=== PATIENT | female | born 1985 | race Caucasian/White ===

== ENCOUNTER 2017-10-08 09:37 | Day surgery (SDC) | payer OTHER, SELFPAY ==
[2017-10-08] VITALS (10 sets, daily range): BP systolic 94–129; BP diastolic 63–84; PULSE 60–90; RESP 14–17; TEMP 36.4–36.9; O2SAT 98–100; BMI 30.7
--- NOTE | 2017-10-08 09:48 | US_ITS ---
STUDY: FIRST TRIMESTER OBSTETRICAL ULTRASOUND REASON FOR EXAM: Female, 32 years old. Right-sided pelvic pain. Positive beta hCG. LMP: August 19, 2017 TECHNIQUE: Transvaginal PRIOR ULTRASOUND: None. FINDINGS: There is an extrauterine (ectopic) gestational sac. The mean sac diameter (MSD) measures 4.3 mm, indicating an estimated gestational age (EGA) of 5 weeks, 4 days. The gestational sac shape is within normal limits. There is a visualized yolk sac. The yolk sac measures 2.5 mm. The placenta is non-visualized. There is visualization of a live embryo. The crown-rump length (CRL) measures 2.8 mm, indicating an estimated gestational age (EGA) of 6 weeks, 0 days. There is demonstrated cardiac activity with a heart rate of 119 bpm. The estimated gestation age (EGA) by LMP is 7 weeks, 1 days. The estimated date of delivery (MARIO) by LMP is May 26, 2018. The estimated gestation age (EGA) by US is 5 weeks, 4 days. The estimated date of delivery (MARIO) by US is June 06, 2018. The uterus measures 9.0 cm x 5.5 x 4.5 cm. The endometrium is thickened. It measures 11.2 mm. Within the endometrium, there is a 4.3 mm small fluid collection suggestive of a pseudogestational sac. There is no demonstrated uterine fibroid. The cervix is closed. The right ovary measures 2.0 cm x 1.7 cm x 0.9 cm.. There is no right ovarian cyst. In the right adnexal region, there is evidence of a live ectopic . The left ovary measures 3.2 cm x 3.0 cm x 2.2 cm. There is no left ovarian cyst. There is no visualized left adnexal mass or complex lesion. There is no fluid in the cul de sac. US/Transvaginal w/Preg US IMPRESSION: Findings in keeping with a right live ectopic . N.B. : The above information has been verbally conveyed by Cayetano Jacques MD to Wiley Radford on 10/08/2017 12:26:43 (ET). Electronically Signed: Cayetano Jacques MD at 12:27 EST Tel [phone], Service support , N.B. : The above information has been verbally conveyed by Cayetano Jacques MD to Wiley Radford on 10/08/2017 12:26:43 (ET).
--- NOTE | 2017-10-08 09:51 | ED.VISSUMM ---
- ER Visit Summary Date of Service: 10/08/17 Chief Complaint: Abdominal pain History of Present Illness: The patient is a 32 F presents to the emergency department with rather sudden onset right lower quadrant pain. The patient is . She thinks she is approximately 5-6 weeks by last menstrual period. She states that today, at about 730 this morning, she had a rather sudden onset sharp stabbing pain in her right lower quadrant deep in the pelvis. She states it is different than pain she has had before. 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 She states the pain felt different and she was much more nauseated. She denies any vomiting. She denies any urinary symptoms. She does have some pain in her right flank. She has had some mild vaginal bleeding. The patient is approximately 8 months . She had no problems with her first . She did call Dr. Antunez, her NEUROPHYSIOLOGICAL TECHNICIAN, who referred her into the emergency department. Physical Examination: Vital signs reviewed General: Well-nourished, well-developed Head: Normocephalic, atraumatic Eyes: Pupils equal and reactive, extraocular muscles intact Neck, supple, no lymphadenopathy Heart: Regular rate and rhythm Respiratory: No distress, clear bilaterally Abdomen: Soft, tender in the right lower quadrant into the pelvis without rebound or guarding, nondistended, no peritoneal signs Back: Nontender Extremities: Nontender, no edema, no cords Skin: Normal color no rash Neuro: Alert and oriented, no focal or lateralizing deficits Test Results: [] Emergency Department Course and Treatment: The patient's symptoms were concerning for an ectopic . She was not hypotensive. Her pain was addressed with some improvement. Screening labs relatively unremarkable. Quant was approximately 3200. The patient went for ultrasound which does confirm a right sided ectopic . There is no evidence of free fluid or rupture. The patient was discussed with both Dr. Antunez and Dr. Juliann Whitehead. She will be taken to surgery for treatment of her right-sided ectopic . Patient will be evaluated by NEUROPHYSIOLOGICAL TECHNICIAN. Treatment Plan: [] Disposition: To surgery Impression:. Right-sided ectopic This note was generated with [employer] software. It may contain incorrect words, spelling, and punctuation that were not noted in review of the chart prior to signing ED Disposition - Plan for ED Patient: Chief Complaint: Abd Pain Referrals: Gustavo Dick [Primary Care Provider] -
[2017-10-08] MEDS: Ondansetron 4 MG/2 ML Vial IV (10:09)
[2017-10-08] MEDS: 0.9% Normal Saline 1,000 ML 1000 ML IV (10:09)
[2017-10-08 10:15] LABS: Absolute Lymphocyte Count 1.86 X10^3/ul (0.83-4.51); Absolute Neutrophil Count 2.8 X10^3/uL (2.0-7.7); Basophil# 0.02 X10^3/uL; Basophil% 0.4 % (0-1); Eosinophil# 0.08 X10^3/uL; Eosinophils% 1.5 % (0-5); Hematocrit 39.9 % (37-47); Lymphocyte # 1.86 X10^3/ul (4.0); Mean Corp Hgb Conc 32.6 g/gl (32-36); Mean Corpuscular Hgb 29.3 pg (27.0-32.0); Mean Corpuscular Volume 90.1 fL (81-99); Mean Platelet Vol. 9.5 fl (6.2-12.0); Monocyte# 0.37 X10^3/uL; Monocyte% 7.2 % (0-10); Neutrophil # 2.83 X10^3/uL (2.7-7.7); Neutrophil % 54.7 % (47-70); Platelet Count 254 K/mm3 (150-450); RBC Distribution Width CV 12.6 % (11.6-14.6); RBC Distribution Width SD 41.2 fl (35.1-43.9); Red Blood Count 4.43 M/mm3 (4.2-5.4); White Blood Count 5.2 K/mm3 (4.4-11.0)
[2017-10-08 10:17] LABS: POSITIVE COUNT NO; POSITIVE DIFFERENTIAL NO; POSITIVE MORPHOLOGY NO
[2017-10-08 10:22] LABS: Anion Gap 9 (5-15); BUN 11 mg/dL (7-18); BUN/Creat Ratio 15.1 RATIO (10-20); Calcium,Total 8.5 mg/dL (8.5-10.1); Chloride 109 mmol/L (98-107); Creatinine, Serum 0.73 mg/dL (0.55-1.02); EST Glomerular Filtration Rate 97 mL/min (>60); Est Glom Filt Rate - Afr Amer 117 mL/min (>60); Glucose 93 mg/dL (74-106); Potassium 3.9 mmol/L (3.5-5.1); Sodium Level 141 mmol/L (136-145)
[2017-10-08 10:41] LABS: hCG Titer Quant., Serum 3285 mIU/mL (<9 non-preg)
[2017-10-08 10:42] LABS: Mucous, Urine 0 SEEN /hpf (<or=2+)
[2017-10-08 10:46] LABS: Color, Urine Yellow (Yellow); Glucose, Dipstick Normal (Normal); Ketone-Dipstick Negative (Negative); Leukocyte Esterase-Dipstick 100 /ul (Negative); Nitrite-Dipstick Negative (Negative); Occult Blood-Urine 10 /ul (Negative); Protein-Dipstick Negative (Negative); Specific Gravity, Urine 1.015 (1.002-1.030); Urine Bilirubin Dipstick Negative (Negative); Urine Clarity Clear (Clear); Urine Urobilinogen 1 mg/dl (Normal); Urine pH 6.5 (5.0 - 8.0)
[2017-10-08 11:03] LABS: White Blood Cells 5-10 SEEN /hpf (0-5)
[2017-10-08 11:04] LABS: Bacteria 2+ /hpf (None Seen); Red Blood Cells-Urine 0-5 SEEN /hpf (0-5); Squamous Epithelial Cells - UA 5-10 SEEN /hpf (5-10)
--- NOTE | 2017-10-08 14:27 | PCM.DC ---
You will use the following diet at home:: Regular Your food should be the consistency of: Regular Discharge Activity: Return to Normal Activity, May Drive, May not drive while taking narcotic pain medications., May Shower Return to work on:: 10/15/17 May shower in (days): 0 May resume sexual activity in: 2 weeks Call your doctor if your incision/area has: Sudden Increased Bleeding, Increased Pain/ Swelling, Increased Redness, Foul Smelling Discharge, Swelling at the incision site Call your doctor if you observe: Fever of 101 or Higher, Inability to urinate, Inability to have a bowel movement, Using more than one pad per hour, Shortness of breath, Chest pain, Calf discomfort, Uncontrolled pain Remove Dressing in (days):: 2 Cleanse incision/area with: Soap & Water Allergies/Adverse Reactions: Allergies meperidine [From Demerol] Allergy (Verified 10/08/17 09:40) Hives peanut Allergy (Verified 10/08/17 09:40) Hives Medications to take at Discharge Polyethylene Glycol 3350 [Miralax] 17 gm PO DAILY 03/12/15 Vits [Prenatabs FA ] 1 tablet PO DAILY 02/09/17 Ibuprofen [Motrin] 800 mg PO TID PRN PRN #30 tab 10/08/17 Oxycodone [Oxyir] 5 mg PO Q4H PRN PRN 7 Days #28 tab 10/08/17 The following prescriptions were given: Oxycodone [Oxyir] 5 mg PO Q4H PRN PRN 7 Days #28 tab PRN Reason: Pain Ibuprofen [Motrin] 800 mg PO TID PRN PRN #30 tab PRN Reason: pain or cramping Primary Care Physician: Gustavo Dick [Primary Care Provider] - Please Follow Up With: Ab Antunez MD When: one week Proposed Discharge Date: 10/08/17
[2017-10-08] MEDS: Bupivacaine Mpf 0.5% 30 ML VIAL (14:45)
--- NOTE | 2017-10-08 14:59 | PCM.IMDPSTOP ---
Problem List (1) Ruptured right tubal ectopic causing hemoperitoneum Status: Acute Immediate Post-Op Note Date of Procedure: 10/08/17 Primary Surgeon/Physician: Ab Antunez product marketing executive: Giancarlo Benitez Pre-Operative Diagnosis: Right ectopic Post-Operative Diagnosis: Same Surgery/Procedure Performed:: Exploratory laparoscopy, right salpingectomy Description of Surgical Findings:: Right fallopian tube with ectopic . Blood present in pelvis and in abdominal gutters. Normal appearing ovaries bilaterally. Left fallopian tube appears normal. Uterus normal. Estimated Blood Loss: minimal Specimen's removed: right fallopian tube with ectopic Drains: none Type of Anesthesia:: General ASA Class: ASA2 Mod Systematic Disease - Admit VTE Documentation VTE Present on Admission: No VTE Mechan Device Prophylaxis: SCD's VTE Pharm Prophylaxis ordered?: No
--- NOTE | 2017-10-08 15:05 | OP.PN_ITS ---
Problem List (1) Ruptured right tubal ectopic causing hemoperitoneum Status: Acute Immediate Post-Op Note Date of Procedure: 10/08/17 Primary Surgeon/Physician: Ab Antunez customs and border protection officer: Giancarlo Benitez Pre-Operative Diagnosis: Right ectopic Post-Operative Diagnosis: Same Surgery/Procedure Performed:: Exploratory laparoscopy, right salpingectomy Description of Surgical Findings:: Right fallopian tube with ectopic . Blood present in pelvis and in abdominal gutters. Normal appearing ovaries bilaterally. Left fallopian tube appears normal. Uterus normal. Estimated Blood Loss: minimal Specimen's removed: right fallopian tube with ectopic Drains: none Type of Anesthesia:: General ASA Class: ASA2 Mod Systematic Disease - Admit VTE Documentation VTE Present on Admission: No VTE Mechan Device Prophylaxis: SCD's VTE Pharm Prophylaxis ordered?: No
--- NOTE | 2017-10-08 15:43 | OP.PCM_ITS ---
Problem List (1) Ruptured right tubal ectopic causing hemoperitoneum Status: Acute Report of Operation Date of Procedure: 10/08/17 Pre-Operative Diagnosis: Right ectopic Post-Operative Diagnosis: Same Surgery/Procedure Performed:: Exploratory laparoscopy, right salpingectomy Description of Surgical Findings:: Right fallopian tube with ectopic . Blood present in pelvis and in abdominal gutters. Normal appearing ovaries bilaterally. Left fallopian tube appears normal. Uterus normal. extension worker: Giancarlo Benitez Type of Anesthesia:: General Anesthesiologist: Terry Herring Specimen's removed: right fallopian tube with ectopic Drains: none Estimated Blood Loss (mL): minimal Fluids Replaced: 1000cc Description of Procedure: Ultrasound findings and diagnosis of ectopic given to Sussy. Explained emergent nature of problem due to high risk of rupture and blood loss. Explained possible need for right salpingectomy prior to taking to OR and implication for possible somewhat reduced fertility. She agreed to surgery. She was taken tot he OR with IV running. She was given 2 grams of cefotetan intravenously prior to the surgery. General anesthesia was introduced without complication. She was then prepped and draped in the dorsal lithotomy position. SCDs were in place. A red rubber catheter was used to drain the bladder. Attention was then directed to the vagina where an Goldthwaite style uterine manipulator was placed. Attention was then directed to the abdomen where a vertical 10mm incision was made in the lower base of the umbilicus. The underlying subcutaneous tissue was dissected down to the level of fascia with a Sana clamp. The abdomen was then elevated and a Veress needle was placed through this defect into the abdomen. The abdomen was then insulflated with CO2 gas to a pressure of 12 Torr. The Veress was then removed and replaced with a 12 mm trocar and sleeve. The trocar was then removed and replaced with the laparoscope. Findings were as mentioned above. Two lateral 5 mm side ports were then placed about 3 cm below the level of the umbilicus lateral to the inferior epigastric vessels. These were placed with direct visualization with the laparoscope. The left fallopian tube was then grasped at the fimbriated end, elevated and the mesosalpinx dissected from the fimbriated end to the the cornua of the uterus. The tube was then amputated at the cornua. The right tube and ectopic was placed in an endocatch bag and removed through the umbilical port site. The pelvis and abdomen was then irrigated to remove the hemoperitoneum. The pedicle sites were hemostatic. The lateral port sites were then removed under direct visualization with the laparoscope. The gas was then evacuated from the abdomen and the umbilical port site removed. The fascia at the umbilicus was closed with a figure of eight stitch of 0-Vicryl. The skin incisions were closed with 4-0 Monocryl. The uterine manipulator was then removed. Sponge, lap, and needle counts were correct x 2. The patient was reversed from anesthesia and taken to the recovery room in stable condition. Grafts/Implants Used: none - Complications none - Admit VTE Documentation VTE Present on Admission: No VTE Mechan Device Prophylaxis: SCD's VTE Pharm Prophylaxis ordered?: No
--- NOTE | 2017-10-08 18:50 | FAL_PTH ---
PATIENT: NERY GARCIA LOC: [facility] [place] U#:[id number] AGE/SX: 32/F ROOM: RE10/08/[address]: Dr. Ab Antunez MD : [id number] BED: DIS: 10/08/2017 SPEC #: [id number] RECD: 10/09/17 10:11 STATUS: SALAS IVANA #: [id number] ETTA: 10/08/17 18:[address]: Ab Antunez DEPT: SURGICAL PATHOLOGY RECD BY: Trev Graham ENTERED: 10/09/17 12:07 SP TYPE: ECTOPIC OTHR DR: Dr. Gustavo Dick DO Tissues: ECTOPIC PREG Procedures: Surgery Specimen Level IV HEADER OPERATION: Exploratory laparoscopy, right salpingectomy PRE-OP DIAGNOSIS: Right ectopic TISSUE SUBMITTED: Right fallopian tube with ectopic MICROSCOPIC DIAGNOSIS Right fallopian tube: Intraluminal chorionic villi, stroma tissue and trophoblastic cells consistent with intratubal . AM:lora 10/12/17 MICROSCOPIC DESCRIPTION Slides are reviewed. GROSS DESCRIPTION Received in fixative is one container labeled with the patient's name and designated right fallopian tube. The specimen consists of a dark ceja fallopian tube measuring 6 cm in length and varying in diameter from 0.6 to 1.7 cm. A normal fimbriated end is identified. Serial sections reveal hemorrhagic cut surfaces. Event Promoter sections are submitted in three cassettes. / AM:lora 10/09/17 TC:5 CPT: 83476
== END 2017-10-08 17:35 | disposition home or self-care (01) ==
LOC: ED 11:56 → SDC 12:02 → AC 12:57
PROVIDERS: Emergency Provider Emergency Medicine; Family Provider Family Medicine; PCP Family Medicine; Visit Provider Obstetrics & Gynecology
PROC: 10T24ZZ Resection of Products of Conception, Ectopic, Percutaneous Endoscopic Approach (ICD-10-PCS; CPT 59150; principal; 2017-10-08 13:15)
DX: O00.101 Right tubal pregnancy without intrauterine pregnancy (principal); K66.1 Hemoperitoneum
CPT/HCPCS: 59151; 76817; 80048; 81001; 84702; 85025; 86900; 88305; 99282; J7030; J7120; J2405

== ENCOUNTER → 2018-07-19 10:51 | Outpatient (CLI) | payer OTHER, SELFPAY ==
[2017-10-08 12:13] VITALS: BMI 30.7
[2018-07-23 08:36] LABS: HPV Reflexed? NOT INDICATED
== END ==
PROVIDERS: Visit Provider Obstetrics & Gynecology
DX: Z12.4 Encounter for screening for malignant neoplasm of cervix (principal)
CPT/HCPCS: 88175; G0145

== ENCOUNTER → 2018-08-25 08:01 | Outpatient (CLI) | payer OTHER, SELFPAY ==
[2018-08-13 14:40] VITALS: BMI 30.7
--- NOTE | 2018-08-25 08:03 | CT_ITS ---
STUDY: CT ABDOMEN AND PELVIS WITH CONTRAST REASON FOR EXAM: Female, 33 years old. Located in the spleen, kidneys are normal in the femoral artery on the manifestation Ultrasound was attempted but due to 3. For 08 In the medial knee and ureters okay Please go evaluated than this is performed to C6. Just relate involving the distal is not my finger pain 5)+'T processing 73 study: The examination was examination obtained onWilly RADIATION DOSAGE (If Supplied By Facility): CTDIvol = ( 16.42 ) mGy, DLP = ( 1245.03 ) mGycm TECHNIQUE: Transaxial images were obtained from the dome of the diaphragm to the symphysis pubis without oral contrast. 100 ml of Isovue 300 contrast was administered. Sagittal and coronal images were reconstructed. Individualized dose optimization techniques were used for this CT. COMPARISON: None. FINDINGS: The visualized lung bases are unremarkable. The visualized portions of the heart are within normal limits. Normal liver. Normal gallbladder and extrahepatic biliary system. Normal spleen. Normal pancreas. Normal bilateral adrenal glands. Normal right kidney. Normal left kidney. Normal visualized stomach. Normal small intestine. Normal colon. The appendix is not visualized. Normal abdominal aorta. Normal inferior vena cava. Normal retroperitoneum. Normal urinary bladder. There is absence of the uterus consistent with a prior hysterectomy. Normal abdominal wall. Normal osseous structures. CT/Abdomen/Pelvis WITH Contrast IMPRESSION: Normal enhanced CT of the abdomen and pelvis. Electronically Signed: Gladys Zhao, at 10:00 EST Tel , Service support ,
== END ==
PROVIDERS: Family Provider Family Medicine; PCP Family Medicine; Referring Provider Surgery; Visit Provider Surgery
DX: R10.9 Unspecified abdominal pain (principal)
CPT/HCPCS: 74177; Q9967

== ENCOUNTER 2019-09-05 03:20 | Emergency (ER) | payer OTHER, SELFPAY ==
[2018-09-01 14:28] VITALS: BMI 30.7
[2019-09-05 03:21] VITALS: BP 124/72; PULSE 67; RESP 16; TEMP 36.5; O2SAT 99; BMI 28.1
--- NOTE | 2019-09-05 03:44 | CT_ITS ---
HISTORY: ABD PAIN X 1 WEEK WITH NAUSEA . THIS AM LLQ PAIN, HX Partial COLECTOMY, ECTOPIC , RIGHT FALLOPIAN TUBE REMOVED, APPY EXAMINATION: CT Abdomen And Pelvis W/ Contrast Injection TECHNIQUE: Helically acquired images were obtained of the abdomen and pelvis following IV contrast. A radiation dose optimization technique was used for this scan. IV Contrast dosage and agent: 100mL Isovue-300 IV Oral contrast: Yes. Oral Gastrografin COMPARISON: 08/25/2018 FINDINGS: No significant change. Lower thorax: Mild dependent atelectasis, not unusual. No radiopaque gallstones and no biliary dilatation. Normal liver, spleen, and pancreas. Both kidneys are normal in position. Bilateral renal opacification without evidence of hydronephrosis, pyelonephritis, or suspicious renal lesion. Left renal lower pole small parapelvic cyst. The adrenal glands are not enlarged. Normal abdominal aorta. No ascites or retroperitoneal lymph node enlargement. GI tract: No obstruction. Moderate colonic stool. Right hemicolon surgical anastomosis which is widely patent. Previous appendectomy. No pericolonic inflammatory change. Pelvis: Anteverted uterus which is normal in size. No free fluid or lymph node enlargement. Normal urinary bladder. Bones: No acute osseous abnormality. CT/Abdomen/Pelvis WITH Contrast IMPRESSION: 1. Stable exam. No diverticulitis or acute abdominal disease identified. 2. Moderate colonic stool. Individualized dose optimization techniques were used for this CT. at 0611 Reported and signed by: Dayo Gabriel MD Electronically Signed: Dayo Gabriel, at 6:10 EST Tel , Service support ,
[2019-09-05] MEDS: Ondansetron 4 MG/2 ML Vial IV (04:08)
[2019-09-05] MEDS: 0.9% Normal Saline 1,000 ML 150 ML IV (04:08)
[2019-09-05] MEDS: Morphine 4 MG/ML Syringe IV (04:09)
[2019-09-05 04:10] LABS: Bacteria 0 SEEN /hpf (None Seen); Mucous, Urine 0 SEEN /hpf (<or=2+); Red Blood Cells-Urine 0 SEEN /hpf (0-5)
[2019-09-05 04:10] LABS: Absolute Lymphocyte Count 3.22 X10^3/uL (0.83-4.51); Absolute Neutrophil Count 3.6 X10^3/uL (2.0-7.7); Basophil# 0.03 X10^3/uL; Basophil% 0.4 % (0-1); Eosinophils% 1.4 % (0-5); Hemoglobin 13.1 g/dL (12.0-15.0); Lymphocyte # 3.22 X10^3/ul (4.0); Lymphocyte % 43.6 % (19-41); Mean Corp Hgb Conc 32.8 g/dL (32-36); Mean Corpuscular Hgb 29.9 pg (27.0-32.0); Mean Corpuscular Volume 91.3 fL (81-99); Mean Platelet Vol. 9.4 fl (6.2-12.0); Monocyte# 0.42 X10^3/uL; Monocyte% 5.7 % (0-10); NRBC Flagged by Analyzer 0 % (0-5); Neutrophil % 48.6 % (47-70); Platelet Count 308 K/mm3 (150-450); RBC Distribution Width CV 12.2 % (11.6-14.6); RBC Distribution Width SD 40.8 fl (35.1-43.9); Red Blood Count 4.38 M/mm3 (4.2-5.4); White Blood Count 7.4 K/mm3 (4.4-11.0)
[2019-09-05 04:21] LABS: Amorphous Sediment 3+; Color, Urine Yellow (Yellow); Squamous Epithelial Cells - UA 5-10 SEEN /hpf (5-10); Urine Clarity Sl Cldy (Clear); White Blood Cells 5-10 SEEN /hpf (0-5)
[2019-09-05 04:22] LABS: Glucose, Dipstick NEGATIVE (Normal); Ketone-Dipstick Negative (Negative); Leukocyte Esterase-Dipstick 25 /ul (Negative); Nitrite-Dipstick Negative (Negative); Occult Blood-Urine 25 /ul (Negative); Protein-Dipstick Negative (Negative); Specific Gravity, Urine 1.015 (1.002-1.030); Urine Bilirubin Dipstick Negative (Negative); Urine Urobilinogen Normal (Normal)
[2019-09-05 04:22] LABS: Internal QC Validated? YES +Cl - CLEAR BKGD; Pregnancy, Serum, hCG Quali. NEGATIVE Negative
[2019-09-05 04:27] LABS: Anion Gap 4 (5-15); BUN 10 mg/dL (7-18); BUN/Creat Ratio 11.5 RATIO (10-20); Calcium,Total 8.9 mg/dL (8.5-10.1); Chloride 107 mmol/L (98-107); Creatinine, Serum 0.87 mg/dL (0.55-1.02); EST Glomerular Filtration Rate 78 mL/min (>60); Est Glom Filt Rate - Afr Amer 95 mL/min (>60); Estimated Creatinine Clearance 86.93 ml/min; Glucose 90 mg/dL (74-106); Potassium 3.8 mmol/L (3.5-5.1); Sodium Level 139 mmol/L (136-145)
[2019-09-05 05:51] VITALS: BP 110/67; PULSE 60; RESP 16; O2SAT 100
--- NOTE | 2019-09-05 06:26 | ED.VIS.GEN ---
History of Present Illness Chief Complaint: Abd Pain Informant: Patient Onset: Days Context: Gradual Onset Timing: Waxes and wanes Current Severity: Moderate Maximum Severity: Moderate Narrative: Patient presents with pain in the left lower quadrant. She states she has had an achy pain that is constant for the past week. She will intermittently get sharp spasms of pain. The spasms have become more intense and more frequent. She woke up this morning feeling nauseated. She has no dysuria. After urinating this morning and wiping she did note a small amount of blood. No problems with bowel movements. No fever or chills. Patient did have prior colectomy and had a right salpingectomy after an ectopic . Patient is noted to have had left lower quadrant pain approximately 14 months ago with no specific cause. At that time she states it seemed to wrap down into her medial thigh more than the current symptoms. - Past Medical History (1) History of appendectomy Status: Chronic (2) H/O colectomy Status: Chronic (3) History of salpingectomy Status: Chronic Past Medical History - Allergies and Home Meds Allergies/Adverse Reactions: Allergies meperidine [From Demerol] Allergy (Verified 10/08/17 09:40) Hives peanut Allergy (Verified 10/08/17 09:40) Hives Primary Care Physician: Gustavo Dick [Primary Care Provider] - Prior records reviewed: Yes Surgical History: appendectomy, colectomy Lives: Spouse/ Significant Other Smoking Status: Never smoker Review of Systems General: Denies: Chills, Fever Eyes: Denies: Visual changes - bilaterally ENT: Denies: Bilateral ear pain Cardiovascular: Denies: Chest pain Respiratory: Denies: Dyspnea, Cough Gastrointestinal: Reports: Abdominal pain, Nausea. Denies: Vomiting, Diarrhea Genitourinary: Denies: Dysuria Musculoskeletal: Denies: Back pain, Swelling, Extremity Pain Skin: Denies: Rash Neurological: Denies: Headache Allergy: Denies: Uticaria Physical Exam Vital Signs/Narrative: Vital Signs Temp Pulse Resp BP Pulse Ox 09/05/19 05:51 60 16 110/67 100 09/05/19 03:21 97.7 F L 67 16 124/72 H 99 Inital Vital Signs reviewed: Yes General: Well nourished, Well developed Head: Normocephalic ENT: Moist mucous membranes Neck: Supple Cardiovascular: Regular rate, Regular rhythm Respiratory: No distress, CTA bilaterally Abdomen: Soft, Tender - Minimal tenderness in the left lower quadrant with deep palpation., Hypoactive bowel sounds. Negative for: Guarding, Rebound tenderness Extremities: Nontender Skin: Normal color Neurological: Alert, Oriented x3 Psychological: Normal affect Diagnostic/Tx/Re-eval Impressions Abdomen/Pelvis CT 09/05/19 03:44 IMPRESSION: 1. Stable exam. No diverticulitis or acute abdominal disease identified. 2. Moderate colonic stool. Individualized dose optimization techniques were used for this CT. at 0611 Reported and signed by: Dayo Gabriel MD Electronically Signed: Dayo Gabriel, at 6:10 EST Tel , Service support , 09/05/19 03:44 Abdomen/Pelvis WITH Contrast [CT] Stat Laboratory Results 09/05/19 09/05/19 09/05/19 03:30 03:30 03:30 WBC 7.4 RBC 4.38 Hgb 13.1 Hct 40.0 MCV 91.3 MCH 29.9 MCHC 32.8 RDW Std Deviation 40.8 RDW Coeff of [place] 12.2 Plt Count 308 MPV 9.4 Immature Gran % (Auto) 0.300 Neut % (Auto) 48.6 Lymph % (Auto) 43.6 H [place] % (Auto) 5.7 Eos % (Auto) 1.4 Baso % (Auto) 0.4 Absolute Neuts (auto) 3.6 Absolute Lymphs (auto) 3.22 Nucleated RBC % 0 Sodium 139 Potassium 3.8 Chloride 107 Carbon Dioxide 28.0 Anion Gap 4 L BUN 10 Creatinine 0.87 Estim Creat Clear Calc 86.93 Est GFR (MDRD) Af Amer 95 Est GFR (MDRD) Non-Af 78 BUN/Creatinine Ratio 11.5 Glucose 90 Calcium 8.9 Serum , Qual NEGATIVE Urine Color Urine Clarity Urine pH Ur Specific [place] Urine Protein Urine Glucose (UA) Urine Ketones Urine Occult Blood Urine Nitrite Urine Bilirubin Urine Urobilinogen Ur Leukocyte Esterase Urine RBC Urine WBC Ur Squamous Epith Cells Amorphous Sediment Urine Bacteria Urine Mucus 09/05/19 04:05 WBC RBC Hgb Hct MCV MCH MCHC RDW Std Deviation RDW Coeff of [place] Plt Count MPV Immature Gran % (Auto) Neut % (Auto) Lymph % (Auto) [place] % (Auto) Eos % (Auto) Baso % (Auto) Absolute Neuts (auto) Absolute Lymphs (auto) Nucleated RBC % Sodium Potassium Chloride Carbon Dioxide Anion Gap BUN Creatinine Estim Creat Clear Calc Est GFR (MDRD) Af Amer Est GFR (MDRD) Non-Af BUN/Creatinine Ratio Glucose Calcium Serum , Qual Urine Color Yellow Urine Clarity Sl Cldy Urine pH 7.0 Ur Specific [place] 1.015 Urine Protein Negative Urine Glucose (UA) NEGATIVE Urine Ketones Negative Urine Occult Blood 25 H Urine Nitrite Negative Urine Bilirubin Negative Urine Urobilinogen Normal Ur Leukocyte Esterase 25 H Urine RBC 0 SEEN Urine WBC 5-10 SEEN Ur Squamous Epith Cells 5-10 SEEN Amorphous Sediment 3+ Urine Bacteria 0 SEEN Urine Mucus 0 SEEN - Medical Decision Making Patient was given morphine, Zofran, and IV fluids. Test results are discussed with patient and at bedside. We discussed possibility of ovarian torsion, however I would suspect to be able to see a large ovarian cyst or inflammation on CT. Patient will take anti-inflammatories regularly for the next few days to see if this helps her symptoms. She is encouraged to follow-up with her TRANSFER DRIVER as well as her family doctor if not returning. She is given return instructions for ER as well. ED Disposition - Plan for ED Patient: Disposition: Home or Assisted Living Diagnosis: Abdominal pain Instructions: ABDOMINAL PAIN, Unknown Cause, (Female) Referrals: Gustavo Dick [Primary Care Provider] - 5-7 Days
[2019-09-05 06:37] VITALS: BP 120/70; PULSE 80; RESP 16; O2SAT 100
== END 2019-09-05 06:38 | disposition home or self-care (01) ==
PROVIDERS: Emergency Provider Emergency Medicine; Family Provider Family Medicine; PCP Family Medicine
DX: R10.32 Left lower quadrant pain (principal)
CPT/HCPCS: 74177; 80048; 81001; 84703; 85025; 96361; 96374; 96375; 99283; J7030; Q9967; A4216; J2405

== ENCOUNTER → 2020-09-12 | Outpatient (CLI) | payer OTHER, SELFPAY ==
[2019-09-21 14:13] VITALS: BMI 28.1
[2020-09-16 07:26] LABS: HPV Reflexed? NOT INDICATED
== END | disposition home or self-care (01) ==
LOC: LABSPEC 16:36
PROVIDERS: PCP Family Medicine; Visit Provider Obstetrics & Gynecology
DX: Z12.4 Encounter for screening for malignant neoplasm of cervix (principal)
CPT/HCPCS: 88175; G0145

== ENCOUNTER 2020-10-18 21:21 | Observation (INO) | payer OTHER, SELFPAY ==
[2019-09-21 14:13] VITALS: BMI 28.1
[2020-10-18 21:23] VITALS: BP 135/69; PULSE 70; RESP 16; TEMP 36.8; O2SAT 98; BMI 35.2
--- NOTE | 2020-10-18 22:05 | CT_ITS ---
STUDY: CT BRAIN WITHOUT CONTRAST REASON FOR EXAM: Female, 35 years old. DIZZINESS,RT SIDED HEADACHE,WEAKNESS AND NAUSEA SINCE 6PM TONIGHT RADIATION DOSAGE (If Supplied By Facility): CTDIvol = ( 44.99 ) mGy, DLP = ( 779.24 ) mGycm TECHNIQUE: Transaxial CT imaging of the brain was performed without administration of intravenous contrast material. Individualized dose optimization techniques were used for this CT. COMPARISON: None. FINDINGS: Normal soft tissue structures. Normal calvarium. No hydrocephalus is seen. No focal parenchymal edema or midline shift is visualized. No demonstrated dense artery sign. Normal size ventricles and extra-axial spaces for the patient''s age. Normal white matter tracts of the cerebral hemispheres. Normal basal ganglia and thalami. Normal brainstem. Normal cerebellum. There is no intracranial hemorrhage. There are no findings of an acute ischemic infarction. Normal visualized paranasal sinuses. CT/Brain/Head without Contrast IMPRESSION: Negative unenhanced CT scan of the brain. Electronically Signed: Juice Bee MD at 23:26 EST , Service support ,
[2020-10-18] MEDS: Metoclopramide 10 MG/2 ML Vial IV (22:27)
[2020-10-18] MEDS: DiphenhydrAMINE 50 MG/ML Syringe 25 MG IV (22:27)
[2020-10-18 22:49] LABS: Anion Gap 5 (5-15); BUN 10 mg/dL (7-18); BUN/Creat Ratio 9.6 RATIO (10-20); Calcium,Total 8.8 mg/dL (8.5-10.1); Chloride 108 mmol/L (98-107); Creatinine, Serum 1.04 mg/dL (0.55-1.02); EST Glomerular Filtration Rate 63 mL/min (>60); Est Glom Filt Rate - Afr Amer 77 mL/min (>60); Estimated Creatinine Clearance 72.02 ml/min; Glucose 90 mg/dL (74-106); Potassium 3.8 mmol/L (3.5-5.1); Sodium Level 140 mmol/L (136-145)
--- NOTE | 2020-10-18 22:56 | ED.DCSUM_ITS ---
History of Present Illness Informant: Patient, Significant Other Onset: Hours Context: Sudden Onset Timing: Continuous Quality: Global acute headache, throbbing Location: Entire head Current Severity: Severe Maximum Severity: Severe Worsened by: Photophobia Relieved by: Nothing Associated Symptoms: Nausea Narrative: Patient states after dinner she sat down. She had abrupt onset of a throbbing global headache. The pain is worse above her right brow. There is no family history of subarachnoid hemorrhage or aneurysm. Patient does report photophobia. She denies neck pain or neck stiffness. She denies fever or chills. Denies rhinorrhea, congestion or postnasal drainage. Denies sore throat. She denies respiratory symptoms. She denies dysuria, frequency, urgency or hematuria. She denies rash. She also reports dizziness. She does report nausea without vomiting or diarrhea. Had patient describe what she means by dizziness. She states things are not spinning. She does not feel right. Prior similar symptoms: No Recent Illness/Hospitalization: No <GarrettKenneth - Last Filed: 10/19/20 00:19> <Oscar Hernandez - Last Filed: 10/19/20 03:14> Chief Complaint: Dizziness - Past Medical History (1) Ruptured right tubal ectopic causing hemoperitoneum Status: Acute <GarrettKenneth - Last Filed: 10/19/20 00:19> Past Medical History Prior records reviewed: Yes Surgical History: appendectomy, colectomy Lives: Spouse/ Significant Other Smoking Status: Never smoker Alcohol: Rare Drugs: None <Kenneth Tucker - Last Filed: 10/19/20 00:19> <Oscar Hernandez - Last Filed: 10/19/20 03:14> - Allergies and Home Meds Allergies/Adverse Reactions: Allergies meperidine [From Demerol] Allergy (Verified 10/18/20 21:29) Hives peanut Allergy (Verified 10/18/20 21:29) Hives Primary Care Physician: Gustavo Dick DO [Primary Care Provider] - Review of Systems General: Denies: Chills, Fever, Malaise, Subjective, Sweats Eyes: Reports: - - Positive for photophobia. Denies: Visual changes - bilaterally, Blurred Vision - bilaterally ENT: Denies: Bilateral ear pain, Rhinorrhea, Sore throat Cardiovascular: Denies: Chest pain, Palpitations Respiratory: Denies: Dyspnea, Cough, Dyspnea on exertion Gastrointestinal: Reports: Nausea. Denies: Abdominal pain, Vomiting, Diarrhea Genitourinary: Denies: Dysuria, Hematuria, Frequency Musculoskeletal: Denies: Myalgias, Arthralgias, Neck pain, Back pain, Swelling, Extremity Pain Neurological: Reports: Headache. Denies: Weakness, Parasthesia Endocrine: Denies: Polyuria, Polydipsia Hematologic: Denies: Easy bruising, Easy bleeding Allergy: Denies: Uticaria, Swelling of the mouth <Tucker,Kenneth - Last Filed: 10/19/20 00:19> Physical Exam Vital Signs/Narrative: Vital Signs Temp Pulse Resp BP Pulse Ox 10/18/20 21:23 98.3 F 70 16 135/69 H 98 General: Well nourished, Well developed, Obese, Acute Distress Head: Normocephalic, Atraumatic Eyes: Perrl, EOMI. Negative for: Pale conjunctiva, Scleral icterus ENT: Moist mucous membranes, No rhinorrhea, Sinus tenderness Neck: Supple, Nontender, No lymphadenopathy, No JVD, - - No meningeal findings. Cardiovascular: Regular rate, Regular rhythm, No murmurs, Normal S1, Normal S2 Respiratory: No distress, CTA bilaterally, - - There is pain to palpation lower right ribs posteriorly. There is no evidence of trauma. There is no crepitus or subcutaneous air. Abdomen: Soft, Nontender, Nondistended, Normal bowel sounds Rectal: Deferred Back: Nontender, Normal Inspection Extremities: Nontender, No edema Skin: Normal color, No rash, No Trauma. Negative for: Cyanosis, Diaphoresis, Jaundice Neurological: Alert, Oriented x3, Cranial nerves II-XII grossly intact, Normal Strength, Normal Sensation, Normal DTR - Is no clonus or Babinski sign noted. Psychological: Tearful <Tucker,Kenneth - Last Filed: 10/19/20 00:19> Vital Signs/Narrative: Vital Signs Pulse Resp BP Pulse Ox 10/19/20 02:58 58 L 16 98/58 L 98 10/19/20 01:00 78 16 100/72 10/18/20 23:33 76 20 H 109/64 98 <Oscar Hernandez - Last Filed: 10/19/20 03:14> Diagnostic/Tx/Re-eval Impressions Brain CT 10/18/20 22:05 IMPRESSION: Negative unenhanced CT scan of the brain. Electronically Signed: Juice Bee MD at 23:26 EST , Service support , 10/18/20 22:05 Brain/Head without Contrast [CT] Stat Laboratory Results 10/18/20 10/18/20 21:45 21:45 WBC 7.2 RBC 4.23 Hgb 12.4 Hct 38.0 MCV 89.8 MCH 29.3 MCHC 32.6 RDW Std Deviation 40.3 RDW Coeff of Aziza 12.3 Plt Count 314 MPV 10.1 Immature Gran % (Auto) 0.400 Neut % (Auto) 49.9 Lymph % (Auto) 40.8 [place] % (Auto) 7.1 Eos % (Auto) 1.1 Baso % (Auto) 0.7 Absolute Neuts (auto) 3.6 Absolute Lymphs (auto) 2.94 Nucleated RBC % 0 Sodium 140 Potassium 3.8 Chloride 108 H Carbon Dioxide 27.0 Anion Gap 5 BUN 10 Creatinine 1.04 H Estim Creat Clear Calc 72.02 Est GFR (MDRD) Af Amer 77 Est GFR (MDRD) Non-Af 63 BUN/Creatinine Ratio 9.6 L Glucose 90 Calcium 8.8 - Medical Decision Making With abrupt onset of headache need to rule out subarachnoid hemorrhage. Also need to evaluate for sinus infection. She is on estrogen therapy need to consider venous sinus thrombosis. She received 25 mg of Benadryl and 10 mg of Reglan for her nausea. Review of CT of the head reveals no evidence of subarachnoid hemorrhage or any obvious abnormality. Sinuses are normal. Since patient complains of severe he adache photophobia need to perform lumbar puncture to rule out small subarachnoid hemorrhage, meningitis or other inflammatory process. Will have patient consented for lumbar puncture. She was informed this needs to be done. She was informed what it would entail. She states her nausea improved markedly with the pain medicine she was given. We will treat her headache with morphine. <Kenneth Tucker - Last Filed: 10/19/20 00:19> Laboratory Tests 02/19/21 02/19/21 02/19/21 Range/Units 00:30 00:15 00:15 Fld Polynuclear WBCs # 0.000 0.000 10^3/uL Fld Polynuclear WBCs % 0.0 0.0 % Fluid Mononuclear WBCs 0.003 0.003 10^3/uL Fld Mononuclear WBCs % 100.0 100.0 % CSF Appearance CLEAR CLEAR (Clear) CSF Color COLORLESS COLORLESS (Colorless) CSF WBC 1 1 ( 0 - 5) /mm-3 CSF RBC 7 H 27 H (None seen) /mm-3 CSF Cell Count Tube # 4 3 CSF Total Cell Counted TNP TNP CSF Lymphocytes 46 (40 - 80) % CSF Monocytes 4 L (15 - 45) % CSF Comment May follow May follow CSF Glucose 54 (40-75) mg/dL CSF Total Protein 25.0 (15.0-45.0) mg/dL - Medical Decision Making Patient checked out to me. On reevaluation after Reglan, Benadryl, morphine, her headache is much better and she did not require retreatment on multiple reevaluations. I interpreted her CSF lab results above. Her protein and glucose are normal, there are no PMNs, and only 3 mononuclear white blood cells along with a negative stat Gram stain. In my interpretation, this is consistent with the absence of acute bacterial infection and very likely the lack of any acute viral infection although there are some viral serology that are sent and pending which will not return tonight. There were 27 red blood cells, this was run in tube #3. Although this is elevated and abnormal, it is much more likely to see a more significant number of red blood cells in an acute subarachnoid hemorrhage. Therefore I had lab run a repeat cell count on tube #4. The red blood count is 7 and that tube, indicating that the initial count was likely small amount of red blood cells due to the procedure itself. In my opinion since the patient is improving, CT is negative, and there is a downward trend and red blood cells which are very few to begin with, this patient does not have an acute subarachnoid hemorrhage and does not require CT angiography at this time. As per discussion of the initial treating emergency physician as well as mine with the patient, the plan will be to admit the patient to observation for further evaluation and testing including MRI/MRV to rule out venous dural thrombosis, a rare complication of being on female hormone supplementation. Migraine/primary headache is in the differential diagnosis as well. <Oscar Hernandez - Last Filed: 10/19/20 03:14> Procedures Procedure(s): Was consented for lumbar puncture. She was informed why a lumbar puncture needed to be performed. She was explained risk benefits. She was given opportunity ask questions none were asked. She was told this is similar to an epidural except the needle is pushed in slightly father to obtain the fluid that they surround her brain. She was informed since she is a 35-year-old female her chance of a spinal headache is 5 to 10%. Patient was prepped draped sterile manner. The L3-L4 interspace was cannula excessively on first attempt. Opening pressure was 27 cm. Fluid is clear and colorless. Fluid was sent off for cell count, glucose, protein, Gram stain and PCR for viral infection. If there is no evidence of inflammation or meningitis with elevated opening pressure she will require MRI MRV to assess for venous sinus thrombosis or other cause of her intracranial hypertension. Attempt was made at funduscopic exam and patient is photophobic and unable to visualize the optic nerve. <Kenneth Tucker - Last Filed: 10/19/20 00:19> ED Disposition <Kenneth Tucker - Last Filed: 10/19/20 00:19> <Oscar Hernandez - Last Filed: 10/19/20 03:14> - Plan for ED Patient: Disposition: Acute Care Hospital [facility] Diagnosis: Intracranial hypertension, Cephalgia Referrals: Gustavo Dick DO [Primary Care Provider] -
[2020-10-18 22:59] LABS: Absolute Lymphocyte Count 2.94 X10^3/uL (0.83-4.51); Absolute Neutrophil Count 3.6 X10^3/uL (2.0-7.7); Basophil# 0.05 X10^3/uL; Basophil% 0.7 % (0-1); Eosinophil# 0.08 X10^3/uL; Eosinophils% 1.1 % (0-5); Hemoglobin 12.4 g/dL (12.0-15.0); Lymphocyte # 2.94 X10^3/ul (4.0); Lymphocyte % 40.8 % (19-41); Mean Corp Hgb Conc 32.6 g/dL (32-36); Mean Corpuscular Hgb 29.3 pg (27.0-32.0); Mean Corpuscular Volume 89.8 fL (81-99); Mean Platelet Vol. 10.1 fl (6.2-12.0); Monocyte# 0.51 X10^3/uL; Monocyte% 7.1 % (0-10); NRBC Flagged by Analyzer 0 % (0-5); Neutrophil % 49.9 % (47-70); Platelet Count 314 K/mm3 (150-450); RBC Distribution Width CV 12.3 % (11.6-14.6); RBC Distribution Width SD 40.3 fl (35.1-43.9); Red Blood Count 4.23 M/mm3 (4.2-5.4); White Blood Count 7.2 K/mm3 (4.4-11.0)
[2020-10-18] MEDS: Morphine 4 MG/ML Syringe IV (23:30)
[2020-10-18 23:33] VITALS: BP 109/64; PULSE 76; RESP 20; O2SAT 98
[2020-10-19] VITALS (8 sets, daily range): BP systolic 93–111; BP diastolic 54–72; PULSE 55–78; RESP 16–18; TEMP 36.2–37; O2SAT 96–99; BMI 31.7
[2020-10-19 00:37] LABS: Body Fluid Mononuclear WBC # 0.003 10^3/uL
[2020-10-19 01:04] LABS: Appearance CSF (character) CLEAR (Clear); Auto B Fluid Analyzer BKGD Ct COUNTS W/IN LIMITS (W/IN LIMITS); CSF Color COLORLESS (Colorless); RBC Count, Spinal Fluid 27 /mm-3 (None seen); Tested Tube # 3
[2020-10-19 01:06] LABS: White Count, CSF 1 /mm-3 (0 - 5)
[2020-10-19 01:10] LABS: Glucose Spinal Fluid 54 mg/dL (40-75)
[2020-10-19 01:11] LABS: Body Fluid QC Type(s) BF1Q
[2020-10-19 02:10] LABS: Monocytes,CSF 4 % (15 - 45)
[2020-10-19 02:11] LABS: Lymphocytes,CSF 46 % (40 - 80)
[2020-10-19 02:38] LABS: Body Fluid Mononuclear WBC # 0.003 10^3/uL
[2020-10-19 02:53] LABS: Appearance CSF (character) CLEAR (Clear); Auto B Fluid Analyzer BKGD Ct COUNTS W/IN LIMITS (W/IN LIMITS); CSF Color COLORLESS (Colorless); RBC Count, Spinal Fluid 7 /mm-3 (None seen); Tested Tube # 4; White Count, CSF 1 /mm-3 (0 - 5)
[2020-10-19 02:56] LABS: Body Fluid QC Type(s) BF1Q
--- NOTE | 2020-10-19 03:28 | HP.PCM_ITS ---
Problem List (1) Intracranial hypertension Status: Acute (2) Cephalgia Status: Acute (3) History of appendectomy Status: Chronic (4) H/O colectomy Status: Chronic (5) History of salpingectomy Status: Chronic (6) Ruptured right tubal ectopic causing hemoperitoneum Status: Chronic History of Present Illness Date of Admission: 10/19/20 Chief Complaint: headache The patient is a 35 year old F with a significant history of a colonic volvulus status post colectomy; history of salpingectomy status post estrogen for control; and appendectomy who presents to the emergency department with excruciating headache. Her headache was at her forehead. It began just after supper on the day of presentation. Associated with symptom is photophobia; nausea and dry heaving. Also she felt lightheaded and weak. Tylenol did not help the pain. Also she thought her gave her Advil which also did not help with the pain. At the emergency department she was given Reglan with Benadryl and that improved her pain dramatically to the point where she was only having very mild pain at her right supraorbital area. Lumbar puncture was done at the emergency department. Past Medical History Past Medical History (Chronic Problems): Chronic Problems (Last Reviewed 10/19/20 @ 04:[address] Marco Avila MD) History of appendectomy (Chronic) H/O colectomy (Chronic) History of salpingectomy (Chronic) Ruptured right tubal ectopic causing hemoperitoneum (Chronic) Medical History: Medical History (Last Reviewed 10/19/20 @ 04:[address] Marco Avila MD) Ruptured right tubal ectopic causing hemoperitoneum (Chronic) O00.101, K66.1 Abdominal pain R10.9 Allergies meperidine [From Demerol] Allergy (Verified 10/18/20 21:29) Hives peanut Allergy (Verified 10/18/20 21:29) Hives Home Medications: Ambulatory Orders Medication Instructions Recorded Norgestimate-Ethinyl Estradiol 1 ea PO DAILY 09/05/19 [Sprintec 28 Day Tablet] Surgical History: Surgical History (Last Reviewed 10/19/20 @ 04:[address] Marco Avila MD) History of appendectomy Z90.49 History of colectomy Z90.49 History of salpingectomy Z90.79 Surgical History: appendectomy, colectomy Lives: Spouse/ Significant Other Smoking Status: Never smoker Alcohol: Rare Drugs: None - *Family History Maternal Family History: Family History (Last Reviewed 10/19/20 @ 04:[address] Marco Avila MD) Mother Arthritis Osteoporosis Hypertension High cholesterol Grandmother Breast cancer Review of Systems Constitutional: Reports: Weakness, Fatigue. Denies: Chills, Fever, Weight Change HEENT: Reports: Head Aches. Denies: Sinus Congestion, Sinus Drainage Cardiovascular: Reports: Light Headedness. Denies: Chest Pain, Palpitations Respiratory: Denies: Cough, Shortness of breath at rest, Sputum production Gastrointestinal: Reports: Nausea. Denies: Abdominal Pain, Vomiting Genitourinary: Denies: Dysuria Musculoskeletal: Denies: Joint Pain, Joint Tenderness Skin: Denies: Rash, Wounds Neurological: Denies: Numbness, Tingling, Focal weakness Psychiatric: Denies: Anxiety, Depression, Homicidal Ideations, Suicidal I deations Hematologic/ Lymphatic: Denies: Easy Bruising, Easy Bleeding VTE Information - Inpt Only VTE Present on Admission: No VTE Mechan Device Prophylaxis: None VTE Pharm Prophylaxis ordered?: Yes Patient Problems: Active and Suspected Problems (Last Reviewed 10/19/20 @ 04:[address] Marco Avila MD) Intracranial hypertension (Acute) Cephalgia (Acute) - Physical Exam Vitals/I&O's: Vital Signs Temp Pulse Resp BP Pulse Ox 97.2 F L 55 L 16 101/60 99 10/19/20 03:15 10/19/20 03:15 10/19/20 03:15 10/19/20 03:15 10/19/20 03:15 Oxygen Delivery Method Room Air Weight: 102 kg Body Mass Index (BMI) 35.2 General: Alert, Oriented x3, Cooperative HEENT: Atraumatic, PERRLA, EOMI, Normocephalic Neck: Supple, No JVD, Negative Carotid Bruits Lungs: Clear to auscultation, Normal air movement, No rhonchi, No wheeze, No rales Cardiovascular: Regular rate, Regular Rhythm, Normal S1, Normal S2, No murmurs Abdomen: Bowel Sounds Present, Soft, Non Tender Extremities: No edema, Capillary Refill Less than 3 Seconds Skin: No rashes, No breakdown Musculoskeletal: No Tenderness to Palpation of Joints or Extremities Neurological: Cranial nerves II-XII grossly intact Psych/Mental Status: Normal Affect, Appropriate Microbiology Past 72 Hours 10/19/20 00:15 Csf, Spinal Fluid Gram Stain - Preliminary Laboratory Results 10/18/20 21:45: WBC 7.2, RBC 4.23, Hgb 12.4, Hct 38.0, MCV 89.8, MCH 29.3, MCHC 32.6, RDW Std Deviation 40.3, RDW Coeff of Aziza 12.3, Plt Count 314, MPV 10.1, Immature Gran % (Auto) 0.400, Neut % (Auto) 49.9, Lymph % (Auto) 40.8, [place] % (Auto) 7.1, Eos % (Auto) 1.1, Baso % (Auto) 0.7, Absolute Neuts (auto) 3.6, Absolute Lymphs (auto) 2.94, Nucleated RBC % 0 10/18/20 21:45: Sodium 140, Potassium 3.8, Chloride 108 H, Carbon Dioxide 27.0, Anion Gap 5, BUN 10, Creatinine 1.04 H, Estim Creat Clear Calc 72.02, Est GFR ( MDRD) Af Amer 77, Est GFR (MDRD) Non-Af 63, BUN/Creatinine Ratio 9.6 L, Glucose 90, Calcium 8.8 10/19/20 00:15: Enterovirus RNA (PCR) Pending, HSV I DNA PCR Pending, HSV II DNA PCR Pending 10/19/20 00:15: Fld Polynuclear WBCs # 0.000, Fld Polynuclear WBCs % 0.0, Fluid Mononuclear WBCs 0.003, Fld Mononuclear WBCs % 100.0, CSF Appearance CLEAR, CSF Color COLORLESS, CSF WBC 1, CSF RBC 27 H, CSF Cell Count Tube # 3, CSF Total Cell Counted TNP, CSF Lymphocytes 46, CSF Monocytes 4 L, CSF Comment December follow 10/19/20 00:15: CSF Glucose 54, CSF Total Protein 25.0 10/19/20 00:30: Fld Polynuclear WBCs # 0.000, Fld Polynuclear WBCs % 0.0, Fluid Mononuclear WBCs 0.003, Fld Mononuclear WBCs % 100.0, CSF Appearance CLEAR, CSF Color COLORLESS, CSF WBC 1, CSF RBC 7 H, CSF Cell Count Tube # 4, CSF Total Cell Counted TNP, CSF Comment May follow Assessment/Plan All Active Problems (Last Reviewed 10/19/20 @ 04:[address] Marco Avila MD) Intracranial hypertension (Acute) Cephalgia (Acute) The patient is a 35 year old F with a significant history of a colonic volvulus status post colectomy; history of salpingectomy status post estrogen for control; and appendectomy who presents emergency department with excruciating headache; photophobia; nausea with dry heaving and lightheadedness. Intractable headache Differential Diagnosis include tension headache; Migraine; pseudotumor cerebri; central venous thrombosis or other. Received Reglan and Benadryl at emergency department. Patient is declining any pain medication at this time. Tube number #3 for lumbar puncture showed RBC of 27. Tube #4 showed RBC of 7 which essentially rules out subarachnoid hemorrhage. Reportedly opening pressure was high. We will follow emergent department doctor's recommendation in order MRI/MRV brain to rule out sinus thrombosis. PRN Maxalt and as needed Zofran ordered. DVT prophylaxis Subcutaneous Lovenox. Inpatient E&M: 96938 Init Hosp L3
--- NOTE | 2020-10-19 03:55 | MRI_ITS ---
STUDY: EXAMINATION - MRV BRAIN WITHOUT CONTRAST REASON FOR EXAM: Female, 35 years old. venous sinus thrombosis, severe H/A , fatigue, neck pain TECHNIQUE: 3D [id number] (TOF) imaging was performed in a 1.5 dinora MRI scanner. COMPARISON: None. FINDINGS: Normal flow within the superior sagittal sinus. Normal flow within the superficial cortical veins. Normal flow within the paired internal cerebral veins, vein of Tyron and straight sinus. Normal flow within the bilateral transverse and sigmoid sinuses. Normal flow within the bilateral jugular bulbs. MRI/MRV Head Without Contrast IMPRESSION: Normal unenhanced MRV of the brain. Electronically Signed: Trev Jaramillo MD at 10:08 EST Tel , Service support ,
--- NOTE | 2020-10-19 03:55 | MRI_ITS ---
STUDY: MRI BRAIN WITHOUT CONTRAST REASON FOR EXAM: Female, 35 years old. venous sinus thrombosis, severe H/A , fatigue, neck pain TECHNIQUE: Standardized multiplanar fat and water weighted pulse sequences were obtained. COMPARISON: CT 10/18/2020 FINDINGS: Normal size of the ventricles and extra-axial spaces for the patient''s age. Normal white matter tracts of the supratentorial brain. There is no evidence for recent intracranial ischemia or other cause of cytotoxic edema on diffusion weighted imaging (DWI). Normal T2* images of the brain without demonstrated susceptibility artifact. There is no demonstrated hemosiderin stain. Normal bilateral basal ganglia. Normal thalami. There is no extra-axial fluid accumulation. Normal flow voids within the major intracranial circulation suggesting patency by spin echo criteria. Normal sella turcica, pituitary gland, infundibular stalk, optic chiasm and hypothalamus. Normal tectal plate and pineal gland. Normal midbrain, angélica and medulla. Normal cerebellum. Normal basal cisterns. Normal bilateral temporal bones. Normal bilateral internal auditory canals. No demonstrated orbital abnormality, within the constraints of a routine brain study. Normal visualized paranasal sinuses. Normal calvarium and skull base. Normal visualized soft tissue structures. Normal visualized upper cervical spine. MRI/Brain without Contrast IMPRESSION: Normal unenhanced MRI of the brain. Electronically Signed: Trev Jaramillo MD at 10:07 EST Tel , Service support ,
[2020-10-19 05:35] LABS: Absolute Lymphocyte Count 2.59 X10^3/uL (0.83-4.51); Absolute Neutrophil Count 2.3 X10^3/uL (2.0-7.7); Basophil# 0.03 X10^3/uL; Basophil% 0.6 % (0-1); Eosinophil# 0.08 X10^3/uL; Eosinophils% 1.5 % (0-5); Hematocrit 36.5 % (37-47); Hemoglobin 11.4 g/dL (12.0-15.0); Lymphocyte # 2.59 X10^3/ul (4.0); Lymphocyte % 48.2 % (19-41); Mean Corp Hgb Conc 31.2 g/dL (32-36); Mean Corpuscular Hgb 29.2 pg (27.0-32.0); Mean Corpuscular Volume 93.4 fL (81-99); Mean Platelet Vol. 9.5 fl (6.2-12.0); Monocyte# 0.38 X10^3/uL; Monocyte% 7.1 % (0-10); NRBC Flagged by Analyzer 0 % (0-5); Neutrophil # 2.28 X10^3/uL (2.7-7.7); Neutrophil % 42.4 % (47-70); Platelet Count 257 K/mm3 (150-450); RBC Distribution Width CV 12.4 % (11.6-14.6); RBC Distribution Width SD 42.6 fl (35.1-43.9); Red Blood Count 3.91 M/mm3 (4.2-5.4); White Blood Count 5.4 K/mm3 (4.4-11.0)
[2020-10-19 05:57] LABS: Anion Gap 6 (5-15); BUN 10 mg/dL (7-18); BUN/Creat Ratio 11.3 RATIO (10-20); Calcium,Total 8.3 mg/dL (8.5-10.1); Chloride 108 mmol/L (98-107); Creatinine, Serum 0.89 mg/dL (0.55-1.02); EST Glomerular Filtration Rate 76 mL/min (>60); Est Glom Filt Rate - Afr Amer 92 mL/min (>60); Estimated Creatinine Clearance 84.16 ml/min; Glucose 80 mg/dL (74-106); Potassium 3.7 mmol/L (3.5-5.1); Sodium Level 140 mmol/L (136-145)
[2020-10-19] MEDS: Rizatriptan Benzoate 10 MG Tablet PO (07:31)
--- NOTE | 2020-10-19 10:44 | DCINST_ITS ---
- Discharge Diagnoses Current Active Problems: Current Active and Chronic Problems (Last Reviewed 10/19/20 @ 04:[address] Marco Avila MD) Intracranial hypertension (Acute) Cephalgia (Acute) History of appendectomy (Chronic) H/O colectomy (Chronic) History of salpingectomy (Chronic) Ruptured right tubal ectopic causing hemoperitoneum (Chronic) You will use the following diet at home:: No restrictions Your food should be the consistency of: Regular Call your doctor if you observe: - - intractable headache Allergies/Adverse Reactions: Allergies meperidine [From Demerol] Allergy (Verified 10/18/20 21:29) Hives peanut Allergy (Verified 10/18/20 21:29) Hives Medications to take at Discharge Norgestimate-Ethinyl Estradiol [Sprintec 28 Day Tablet] 1 ea PO DAILY 09/05/19 Acetaminophen 1,000 mg PO TID PRN #1 tablet 10/19/20 Ibuprofen 3 - 4 tab PO TID #1 tablet 10/19/20 Sumatriptan Succinate [Imitrex] 25 mg PO DAILY PRN #10 tab 10/19/20 The following prescriptions were given: Acetaminophen 1,000 mg PO TID PRN #1 tablet PRN Reason: Headache Ibuprofen 3 - 4 tab PO TID #1 tablet Sumatriptan Succinate [Imitrex] 25 mg PO DAILY PRN #10 tab PRN Reason: Migraine Symptoms Transmission Status: Pending to [facility]/pharmacy #[id number] Primary Care Physician: Gustavo Dick DO [Primary Care Provider] - Within 2 Weeks Test Results: Test results from this visit will be discussed in further detail at your follow- up appointment, if applicable. Proposed Discharge Date: 10/19/20
--- NOTE | 2020-10-19 10:45 | PCM.DC.SUM ---
Discharge Date and Diagnosis - Problem List Patient Problems: Active and Suspected Problems (Last Reviewed 10/19/20 @ 04:[address] Marco Avila MD) Cephalgia (Acute) Date of Admission: 10/19/20 Date of Discharge: 10/19/20 - Primary Discharge Diagnosis Acute Problems: Active Problems (Last Reviewed 10/19/20 @ 04:[address] Marco Avila MD) Acute Migraine - Secondary Discharge Diagnosis Chronic Problems: Chronic Problems (Last Reviewed 10/19/20 @ 04:[address] 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 Electronically Signed: Juice Bee MD at 23:26 EST , Service support , Brain MRI 10/19/20 03:55 IMPRESSION: Normal unenhanced MRI of the brain. Electronically Signed: Trev Jaramillo MD at 10:07 EST Tel , Service support , Brain MRI 10/19/20 03:55 IMPRESSION: Normal unenhanced MRV of the brain. Electronically Signed: Trev Jaramillo MD at 10:08 EST Tel , Service support , Operations: None, colectomy - lap right hemicolectomy Procedures: - - lumbar punctutre Summary of Care Provided: The patient is a 35 year old F with acute onset of right-sided headache. Patient had additional photophobia as well as schemata. Patient is never had severe migraine like this. Patient presented to the emergency room and concern was for subarachnoid hemorrhage. CAT scan was negative. Patient underwent a lumbar puncture blood was noted in to #327 but went down to 7 on #4. Likely with the actual procedure itself and not due to subarachnoid hemorrhage. Patient feels much better at this time Nahid headache as a 1 out of 10 and much more tolerable. Patient does get headaches periodically but never to this degree. Patient did have viral studies for enterovirus as well as HSV, which are still pending. Given the abrupt onset and abrupt resolution of her symptoms it seems highly unlikely that this is encephalitis is really not meningitis. As patient does not have any other risk factors associated with that more clinically had a presentation to suggest that. This seems more consistent with an acute migraine. Patient advised to take acetaminophen and ibuprofen as needed and patient will receive a prescription for Imitrex as needed for severe migraines. Patient did have an MRI and MRV which were both negative. Patient advised to be slowly back into her routine to help prevent post dural puncture headache. [] Patient Problems: Active and Suspected Problems (Last Reviewed 10/19/20 @ 04:[address] Marco Avila MD) Cephalgia (Acute) - Physical Exam Vitals/I&O's: Vital Signs Temp Pulse Resp BP Pulse Ox 37.0 C 63 16 93/54 L 96 10/19/20 07:17 10/19/20 07:17 10/19/20 07:17 10/19/20 07:17 10/19/20 07:17 Oxygen Delivery Method Room Air Weight: 91.9 kg Body Mass Index (BMI) 31.7 General: Alert, No apparent distress HEENT: Atraumatic, EOMI, Normocephalic Neck: No Nodes, Thyroid Normal Size and Texture Cardiovascular: Regular rate, Regular Rhythm, Normal S1, Normal S2 Musculoskeletal: - - No meningismus Microbiology Past 72 Hours 10/19/20 00:15 Csf, Spinal Fluid Gram Stain - Preliminary Laboratory Results 10/18/20 21:45: WBC 7.2, RBC 4.23, Hgb 12.4, Hct 38.0, MCV 89.8, MCH 29.3, MCHC 32.6, RDW Std Deviation 40.3, RDW Coeff of Aziza 12.3, Plt Count 314, MPV 10.1, Immature Gran % (Auto) 0.400, Neut % (Auto) 49.9, Lymph % (Auto) 40.8, [place]key % (Auto) 7.1, Eos % (Auto) 1.1, Baso % (Auto) 0.7, Absolute Neuts (auto) 3.6, Absolute Lymphs (auto) 2.94, Nucleated RBC % 0 10/18/20 21:45: Sodium 140, Potassium 3.8, Chloride 108 H, Carbon Dioxide 27.0, Anion Gap 5, BUN 10, Creatinine 1.04 H, Estim Creat Clear Calc 72.02, Est GFR (MDRD) Af Amer 77, Est GFR (MDRD) Non-Af 63, BUN/Creatinine Ratio 9.6 L, Glucose 90, Calcium 8.8 10/19/20 00:15: Enterovirus RNA (PCR) Pending, HSV I DNA PCR Pending, HSV II DNA PCR Pending 10/19/20 00:15: Fld Polynuclear WBCs # 0.000, Fld Polynuclear WBCs % 0.0, Fluid Mononuclear WBCs 0.003, Fld Mononuclear WBCs % 100.0, CSF Appearance CLEAR, CSF Color COLORLESS, CSF WBC 1, CSF RBC 27 H, CSF Cell Count Tube # 3, CSF Total Cell Counted TNP, CSF Lymphocytes 46, CSF Monocytes 4 L, CSF Comment May follow 10/19/20 00:15: CSF Glucose 54, CSF Total Protein 25.0 10/19/20 00:30: Fld Polynuclear WBCs # 0.000, Fld Polynuclear WBCs % 0.0, Fluid Mononuclear WBCs 0.003, Fld Mononuclear WBCs % 100.0, CSF Appearance CLEAR, CSF Color COLORLESS, CSF WBC 1, CSF RBC 7 H, CSF Cell Count Tube # 4, CSF Total Cell Counted TNP, CSF Comment May follow 10/19/20 05:10: WBC 5.4, RBC 3.91 L, Hgb 11.4 L, Hct 36.5 L, MCV 93.4, MCH 29.2, MCHC 31.2 L, RDW Std Deviation 42.6, RDW Coeff of Aziza 12.4, Plt Count 257, MPV 9.5, Immature Gran % (Auto) 0.200, Neut % (Auto) 42.4 L, Lymph % (Auto) 48.2 H, Dickey % (Auto) 7.1, Eos % (Auto) 1.5, Baso % (Auto) 0.6, Absolute Neuts (auto) 2.3, Absolute Lymphs (auto) 2.59, Nucleated RBC % 0 10/19/20 05:10: Sodium 140, Potassium 3.7, Chloride 108 H, Carbon Dioxide 26.0, Anion Gap 6, BUN 10, Creatinine 0.89, Estim Creat Clear Calc 84.16, Est GFR (MDRD) Af Amer 92, Est GFR (MDRD) Non-Af 76, BUN/Creatinine Ratio 11.3, Glucose 80, Calcium 8.3 L Current Medications Melatonin (Melatonin 3 Mg Tablet) 3 mg PO QHS PRN PRN PRN Reason: INSOMNIA Norgestimate (Norgestimate-Ethinyl Estradiol 1 Dose.Pack) 1 tablet PO DAILY [facility] Last Admin: 10/19/20 09:54 Dose: Not Given Documented by: Ondansetron HCl (Ondansetron 4 Mg/2 Ml Vial) 4 mg IV Q8H PRN PRN PRN Reason: NAUSEA/VOMITING Rizatriptan Benzoate (Rizatriptan Benzoate 10 Mg Tablet) 10 mg PO .[X1 PRN] PRN PRN Reason: MIGRAINE SYMPTOMS Last Admin: 10/19/20 07:31 Dose: 10 mg Documented by: Senna/Docusate Sodium (Senna/Docusate Sodium 1 Tablet) 2 tablet PO BID PRN PRN PRN Reason: Constipation Sodium Chloride (0.9% Saline Lock 10 Ml Syringe) 10 - 40 ml IV UD PRN PRN Reason: SALINE FLUSH Discharge Diet: No Restrictions Call your doctor if you observe: - - intractable headache Home Medications: Medications to take at Discharge Norgestimate-Ethinyl Estradiol [Sprintec 28 Day Tablet] 1 ea PO DAILY 09/05/19 Acetaminophen 1,000 mg PO TID PRN #1 tablet 10/19/20 Ibuprofen 3 - 4 tab PO TID #1 tablet 10/19/20 Sumatriptan Succinate [Imitrex] 25 mg PO DAILY PRN #10 tab 10/19/20 Following Prescriptions Were Given to Patient: Acetaminophen 1,000 mg PO TID PRN #1 tablet PRN Reason: Headache Ibuprofen 3 - 4 tab PO TID #1 tablet Sumatriptan Succinate [Imitrex] 25 mg PO DAILY PRN #10 tab PRN Reason: Migraine Symptoms Transmission Status: Pending to [id number] Primary Care Physician: Gustavo Dick DO [Primary Care Provider] - Within 2 Weeks Disposition: Home Minutes spent on discharge:: 32 Patient Condition:: Good Medical Necessity - Tobacco Use Smoking Status: Never smoker Meaningful Use Info Meaningful Use Diagnoses (Choose all that apply): None applicable OBSV E&M: 98266 Observation care discharge
--- NOTE | 2020-10-19 12:16 | PHA.DC.MR ---
Pharmacy Service has performed discharge medication reconciliation for this patient. The patient's discharge medication list was reviewed for discrepancies and discrepancies were resolved. Home Medications Norgestimate-Ethinyl Estradiol [Sprintec 28 Day Tablet] 1 ea PO DAILY 09/05/19 Acetaminophen 1,000 mg PO TID PRN #1 tab 10/19/20 Ibuprofen 3 - 4 tab PO TID #1 tab 10/19/20 Sumatriptan Succinate [Imitrex] 25 mg PO DAILY PRN #10 tab 10/19/20
[2020-10-19 13:22] LABS: Pathologist Review Reviewed
[2020-10-22 13:16] LABS: Pathologist Review Reviewed
[2020-10-25 03:06] LABS: HSV 1 By PCR Negative (Negative)
[2020-10-25 08:18] LABS: Enterovirus By PCR Negative (Negative); HSV 2 By PCR Negative (Negative)
== END 2020-10-19 12:07 | disposition home or self-care (01) ==
LOC: ED 10-19 03:14 → MS3 10-19 03:35
PROVIDERS: Admitting Provider Hospitalist; Emergency Provider Emergency Medicine; PCP Family Medicine
DX: G43.909 Migraine, unspecified, not intractable, without status migrainosus (principal); G93.2 Benign intracranial hypertension
CPT/HCPCS: 36415; 62270; 70450; 70544; 70551; 80048; 82945; 84157; 85025; 87070; 87205; 87498; 87529; 89050; 89051; 96374; 96375; 99218; 99285; A4216; G0378; J2405

== ENCOUNTER 2021-05-04 18:01 | Emergency (ER) | payer OTHER, SELFPAY ==
[2021-05-04 18:05] VITALS: BP 114/76; PULSE 86; RESP 20; TEMP 37.2; O2SAT 100; BMI 31.0
--- NOTE | 2021-05-04 18:42 | EX.ED.DYSGE1 ---
HPI History of Present Illness Chief Complaint: Allergic Reaction Narrative Narrative: States that she got exposed to peanut butter and following this developed generalized rash with difficulty breathing. She states that she was given IM epinephrine and IV Benadryl. She reports that the symptoms began to improve but she felt like her whole body was heavy and had difficulty moving and secondary to this was sent to the hospital for evaluation [facility] Medical History (Updated 05/04/21 @ 22:[address] Omer Nuñze, DO) Abdominal pain Ruptured right tubal ectopic causing hemoperitoneum Home Medications norgestimate-ethinyl estradiol 1 ea PO DAILY 09/05/19 [History Last Taken 10/18/20 06:30] acetaminophen 1,000 mg PO TID PRN #1 tab 10/19/20 [Rx Last Taken Unknown] ibuprofen 3 - 4 tab PO TID #1 tab 10/19/20 [Rx Last Taken Unknown] sumatriptan succinate 25 mg PO DAILY PRN #10 tab 10/19/20 [Rx Last Taken Unknown] prednisone 40 mg PO DAILY 5 Days #10 tab 05/04/21 [Rx Last Taken Unknown] Allergy/AdvReac Type Severity Reaction Status Date / Time meperidine [From Demerol] Allergy Hives Verified 05/04/21 18:13 peanut Allergy Hives Verified 05/04/21 18:13 Family History Mother Arthritis Osteoporosis Hypertension High cholesterol Grandmother Breast cancer Surgical History History of appendectomy History of colectomy History of salpingectomy Social History (Updated 09/21/19 @ 16:[address] Riley Fallon MD) Smoking Status: Never smoker alcohol intake: never substance use type: does not use ROS ROS ED Constitutional Constitutional ED: Denies chills or fever(s) Eyes Eyes: Denies change in vision ENT ENT ED: Denies rhinorrhea or sore throat Cardiovascular Cardiovascular: Denies chest pain Respiratory/Chest Respiratory/Chest: Reports dyspnea; Denies cough Gastrointestinal Gastrointestinal: Denies abdominal pain, nausea or vomiting Genitourinary Genitourinary ED: Denies dysuria Musculoskeletal Musculoskeletal: Denies myalgias Integumentary Reports rash Neurologic Neurologic: Reports weakness; Denies headache(s) Allergic/Immunologic Allergic/Immunologic ED: Denies mouth swelling or tongue swelling EXAM Physical Exam Const Vital Signs: 05/04/21 18:05 05/04/21 19:01 05/04/21 19:52 Temperature 98.9 F Temperature Source Temporal Pulse Rate 86 79 61 Respiratory Rate 20 H 19 H 18 Blood Pressure 114/76 106/68 106/68 Blood Pressure Mean 88 80 80 Pulse Ox 100 100 100 Oxygen Delivery Method Room Air Room Air Nasal Cannula Oxygen Flow Rate (L/min) 1.5 05/04/21 21:02 Temperature Temperature Source Pulse Rate 62 Respiratory Rate 20 H Blood Pressure 112/58 L Blood Pressure Mean 76 Pulse Ox 99 Oxygen Delivery Method Room Air Oxygen Flow Rate (L/min) Positive well nourished and well developed General Appearance ED: well developed HEENT HEENT Narrative: No tongue or lip swelling no oral lesions no airway edema or compromise Eyes PERRL and EOMs intact bilaterally Neck supple Resp normal respiratory effort and clear to auscultation bilaterally Cardio regular rate and regular rhythm GI non-tender and non-distended Auscultation: normoactive bowel sounds Palpation: soft Extremity Extremity Narrative: No bony deformity or joint effusions noted Neuro oriented x3 and CN's II-XII intact bilaterally Sensorium / Orientation: alert Psych mental status grossly normal Skin no rashes or lesions noted MDM MDM MDM Narrative Medical decision making narrative: Patient presented to the ER with stable vital status post allergic reaction. She reported she was having a heaviness to her body and difficulty moving her extremities because of this. However her neurologic exam was normal and she was awake and alert indicating this is most likely medication or supratentorial. Basic blood work was obtained secondary to this and her potassium was only slightly down to 3.3 which should not be low enough to cause issues. Patient was given Pepcid and Solu-Medrol to complete the allergic reaction cocktail. She was watched in the ER for multiple hours and had no return to difficulty breathing and her extremity strength returned to normal as well. Therefore at this time patient is safe for discharge Lab Data Labs: Laboratory Results - last 24 hr 05/04/21 05/04/21 19:39 19:39 WBC 10.5 RBC 3.87 L Hgb 11.7 L Hct 36.0 L MCV 93.0 MCH 30.2 MCHC 32.5 RDW Std Deviation 41.2 RDW Coeff of Aziza 12.0 Plt Count 268 MPV 9.5 Immature Gran % (Auto) 0.300 Neut % (Auto) 68.6 Lymph % (Auto) 24.0 [place] % (Auto) 6.3 Eos % (Auto) 0.4 Baso % (Auto) 0.4 Absolute Neuts (auto) 7.2 Absolute Lymphs (auto) 2.52 Nucleated RBC % 0 Sodium 141 Potassium 3.3 L Chloride 112 H Carbon Dioxide 23.0 Anion Gap 6 BUN 12 Creatinine 0.78 Estim Creat Clear Calc 95.10 Est GFR (MDRD) Af Amer 107 Est GFR (MDRD) Non-Af 88 BUN/Creatinine Ratio 15.4 Glucose 80 Calcium 8.5 Magnesium 1.9 Discharge Plan Triage Chief Complaint: Allergic Reaction ED Provider: Omer Nuñez Dx/Rx/DC Orders Clinical Impression: Acute allergic reaction Instructions: Allergy Overview Prescriptions: New prednisone 20 mg tablet 40 mg PO DAILY 5 Days Qty: 10 RF: 0 No Action norgestimate-ethinyl estradiol 1 EACH tablet 1 ea PO DAILY RF: 0 sumatriptan succinate 25 MG tablet 25 mg PO DAILY PRN (Reason: Migraine Symptoms) Qty: 10 RF: 0 acetaminophen 500 MG tablet 1,000 mg PO TID PRN (Reason: Headache) Qty: 1 RF: 0 ibuprofen 200 MG tablet 3 - 4 tab PO TID Qty: 1 RF: 0 Primary Care Provider: Gustavo Dick Referrals: Gustavo Dick DO [Primary Care Provider] - Disposition Disposition: Home, Self Care
[2021-05-04 19:01] VITALS: BP 106/68; PULSE 79; RESP 19; O2SAT 100
[2021-05-04] MEDS: Famotidine 200 MG/20 ML MDV 40 MG in 0.9% Normal Saline (Pres. free 6 ML 300 MG IV (19:38)
[2021-05-04] MEDS: MethylPREDNISolone 125 MG/2 ML Vial IV (19:38)
[2021-05-04 19:52] VITALS: BP 106/68; PULSE 61; RESP 18; O2SAT 100
[2021-05-04 20:06] LABS: Absolute Lymphocyte Count 2.52 X10^3/uL (0.83-4.51); Absolute Neutrophil Count 7.2 X10^3/uL (2.0-7.7); Basophil# 0.04 X10^3/uL; Basophil% 0.4 % (0-1); Eosinophil# 0.04 X10^3/uL; Eosinophils% 0.4 % (0-5); Hemoglobin 11.7 g/dL (12.0-15.0); Lymphocyte # 2.52 X10^3/ul (0.83-4.51); Mean Corp Hgb Conc 32.5 g/dL (32-36); Mean Corpuscular Hgb 30.2 pg (27.0-32.0); Mean Platelet Vol. 9.5 fl (6.2-12.0); Monocyte# 0.66 X10^3/uL; Monocyte% 6.3 % (0-10); NRBC Flagged by Analyzer 0 % (0-5); Neutrophil # 7.21 X10^3/uL (2.7-7.7); Neutrophil % 68.6 % (47-70); Platelet Count 268 K/mm3 (150-450); RBC Distribution Width SD 41.2 fl (35.1-43.9); Red Blood Count 3.87 M/mm3 (4.2-5.4); White Blood Count 10.5 K/mm3 (4.4-11.0)
[2021-05-04 20:19] LABS: Anion Gap 6 (5-15); BUN 12 mg/dL (7-18); BUN/Creat Ratio 15.4 RATIO (10-20); Calcium,Total 8.5 mg/dL (8.5-10.1); Chloride 112 mmol/L (98-107); Creatinine, Serum 0.78 mg/dL (0.55-1.02); EST Glomerular Filtration Rate 88 mL/min (>60); Est Glom Filt Rate - Afr Amer 107 mL/min (>60); Glucose 80 mg/dL (74-106); Magnesium 1.9 mg/dL (1.6-2.6); Potassium 3.3 mmol/L (3.5-5.1); Sodium Level 141 mmol/L (136-145)
[2021-05-04 21:02] VITALS: BP 112/58; PULSE 62; RESP 20; O2SAT 99
[2021-05-04 22:28] VITALS: BP 106/64; PULSE 71; RESP 16; O2SAT 99
--- NOTE | 2021-05-04 22:28 | ED.RN ---
THIS NURSE REVIEWED D/C INSTRUCTIONS WITH PT AND . BOTH VERBALIZED UNDERSTANDING OF INSTRUCTIONS. IV D/C. IV CATHETER INTACT. PT TOLERATED WELL. PT DENIES FURTHER NEEDS OR QUESTIONS AT THIS TIME
== END 2021-05-04 22:29 | disposition home or self-care (01) ==
PROVIDERS: Emergency Provider Emergency Medicine; PCP Family Medicine
DX: T78.40XA Allergy, unspecified, initial encounter (principal)
CPT/HCPCS: 80048; 83735; 85025; 96365; 96375; 99284; J3490

== ENCOUNTER → 2021-07-15 15:38 | Outpatient (CLI) | payer OTHER, SELFPAY ==
--- NOTE | 2021-07-15 15:42 | US_ITS ---
STUDY: ULTRASOUND OF THE FEMALE PELVIS - COMPLETE REASON FOR EXAM: Female, 36 years old. Dysfunctional uterine bleeding. LMP: 02/26/2021. TECHNIQUE: Transabdominal and Transvaginal TECHNICAL QUALITY: Adequate. COMPARISON: None. FINDINGS: The uterus is anteverted and is in a midline position. The uterus measures 8.5 cm x 6.2 cm x 3.8 cm. There is a Nabothian cyst of the cervix. The endometrium measures 5 mm in thickness, and is hyperechoic. Trace amount of fluid is seen within the endometrium. There is no demonstrated endometrial mass. There is no demonstrated myometrial mass. I.U.D. - The patient does not have an I.U.D. The right ovary is visualized. The right ovary measures 2.3 cm x 1.5 cm x 0.9 cm. There is no right ovarian cyst or ovarian mass. There is no visualized right adnexal mass or complex lesion. There is normal arterial and normal venous vascularity. The left ovary is visualized. The left ovary measures 2.1 cm x 1.4 cm x 1.0 cm. There is no left ovarian cyst or ovarian mass. There is no visualized left adnexal mass or complex lesion. There is normal arterial and normal venous vascularity. There is no fluid in the cul-de-sac. The pre void volume of the bladder was 192 ml. US/Pelvic (Non ) IMPRESSION: Trace amount of endometrial fluid. Electronically Signed: Cayetano Jacques MD at 12:31 EST , Service support ,
--- NOTE | 2021-07-15 16:03 | US_ITS ---
STUDY: ULTRASOUND OF THE FEMALE PELVIS - COMPLETE REASON FOR EXAM: Female, 36 years old. Dysfunctional uterine bleeding. LMP: 02/26/2021. TECHNIQUE: Transabdominal and Transvaginal TECHNICAL QUALITY: Adequate. COMPARISON: None. FINDINGS: The uterus is anteverted and is in a midline position. The uterus measures 8.5 cm x 6.2 cm x 3.8 cm. There is a Nabothian cyst of the cervix. The endometrium measures 5 mm in thickness, and is hyperechoic. Trace amount of fluid is seen within the endometrium. There is no demonstrated endometrial mass. There is no demonstrated myometrial mass. I.U.D. - The patient does not have an I.U.D. The right ovary is visualized. The right ovary measures 2.3 cm x 1.5 cm x 0.9 cm. There is no right ovarian cyst or ovarian mass. There is no visualized right adnexal mass or complex lesion. There is normal arterial and normal venous vascularity. The left ovary is visualized. The left ovary measures 2.1 cm x 1.4 cm x 1.0 cm. There is no left ovarian cyst or ovarian mass. There is no visualized left adnexal mass or complex lesion. There is normal arterial and normal venous vascularity. There is no fluid in the cul-de-sac. The pre void volume of the bladder was 192 ml. US/Transvaginal Non- IMPRESSION: Trace amount of endometrial fluid. Electronically Signed: Cayetano Jacques MD at 12:31 EST , Service support ,
== END ==
LOC: US 15:39
PROVIDERS: PCP Family Medicine; Referring Provider Family Medicine; Visit Provider Family Medicine
DX: N93.8 Other specified abnormal uterine and vaginal bleeding (principal); N72 Inflammatory disease of cervix uteri
CPT/HCPCS: 76830; 76856

== ENCOUNTER 2022-12-10 13:30 | Outpatient (RCR) | payer OTHER, SELFPAY ==
--- NOTE | 2022-11-25 09:57 | HP.PTEVAL ---
Patient's Visit Information NERY GARCIA is a 37 year old F referred to Physical Therapy by ONEL BARNHART with a diagnosis of LUMBAR PAIN. Date of Evaluation: 11/25/22 Physical Therapist: Rebecca Valencia PT, Cert MDT - Visit Plan Frequency: 2-3x /Week Duration: 4-6 Weeks Plan: POSTURE CORRECTION/STRENGTHENING, INSTRUCTION IN APPROPRIATE BODY MECHANICS AND ACTIVITY MODIFICATIONS. DLS STARTING WITH A NEUTRAL SPINE PROGRESSING ROM TOLERATED STARTING WITH SKTC AND LTR IN SUPINE. TEGAN LE ROM, STRETCHING AND STRENGTHENING. HEP INSTRUCTION. 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 TENTATIVE RETURN TO WORK DATE IS 12/08/22 (OFF 8 WKS). Disability: NO. Present symptoms: LOW BACK SORENESS. SHOOTING PAIN L BUTTOCK INTERMITTENTLY. INTERMITTENT LEFT GROIN PAIN. DENIES ANY OTHER LEG SX'S CURRENTLY. Present since: SEVERAL YEARS AGO BUT WENT AWAY AND CAME BACK IN MAY 2022. Pain Scale: WORST 4/10, LEAST 1/10. Currently: 2-3/10. Is it getting better, worse or staying the same: GETTING BETTER. Commenced as a result of: NO APPARENT REASON. MAYBE INITIALLY. Symptoms at onset: BEFORE SX - TERRIBLE PAIN DOWN L LEG FROM LOW BACK. L CALF AND FOOT WERE NUMB. BENT OVER AND COULDN'T HARDLY WALK. L GROIN PAIN. Worse: PROLONGED SITTING, PROLONGED WALKING, REACHING UP AND TRYING TO GO UP STEPS. Better: FREQUENT CHANGE OF POSITION. NAPROXEN. Disturbed sleep: NO. Previous history/Previous treatment: CHIROPRACTIC 2X'S A WK X 6 MONTH BEFORE SURGERY. 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 ALWAYS LLE. Treatment this episode: L5-S1 LAMINECTOMY 10/13/[address] DUPREE ([facility]). Coughing/sneezing/straining: NEGATIVE. Gait: TIME AND DISTANCE LIMITED. HAS TO WALK VERY VERY SLOW IF WALKS TOO LONG. Bowel or Bladder Dysfunction: NO. Accidents: FALL DOWN STEPS JUL 2022 - BACK FLARE UP HAD ALREADY STARTED - NO FX'S BUT MASSIVELY BRUISED LEFT SIDE OF BODY. Unexplained weight loss: NO. Imaging: MRI AND X-RAYS BEFORE SX - UNAWARE OF ANY IMAGING AFTER SX. L5-S1 DISC HERNIATION PER PATIENT REPORT. PMH/Recent major surgery: PARTIAL COLONECTOMY 2013. OTHER: WALKING ABOUT 1 MILE A DAY (REALLY SLOW TOWARD THE END). NO EXERCISES YET. NO PHYSICIAN RESTICTIONS CURRENTLY THAT PATIENT IS AWARE OF. LUMBAR BRACE X 3 WKS WHEN UP AND ABOUT AFTER SURGERY. NO BRACE NOW. PATIENT REPORTS DR. DUPREE TOLD HER THE HERNIATION WAS MASSIVE. - Objective Sitting/Standing Posture: POOR. RH. RSH'S. SLOUCHED. NO RELEVANT LATERAL SHIFT. Active Correction of posture: ACTIVELY INCREASES PAIN AND DIFFICULT. PASSIVELY TOLERATED WELL. Other Observations: SLOW GUARDED INDEP GAIT INTO PT WITHOUT ANY ASSISTIVE DEVICES OR LOB. DECREASED TEGAN STRIDE LENGTH AND NO TRUNK ROTATION OR ARM SWING. Sensory deficit: DECREASED LIGHT TOUCH SENSATION LEFT LATERAL THIGH, LEG, FOOT AND 5TH DIGIT. ROM deficit: VERY TIGHT TEGAN HS'S AND GASTROC SOLEUS COMPLEX'S. Motor deficit: RIGHT LE GROSSLY 5/5 EXCEPT HIP 4-/5. LLE: HIP 3+/5, KNEE 4/5, ANKLE 4/4. Reflexes: 2/3 TEGAN LE'S. Dural Signs: NEGATIVE TEGAN LE'S. Lumbar mvmt loss: flex - MYRA. ext - MYRA. R SG - MYRA. L SG - MYRA. PATIENT C/O STIFFNESS WITH LUMBAR ROM TESTING ALL PLANES BUT A LITTLE BIT OF PAIN WITH EXTENSION. Core strength: POOR. Palpation: INCISION LOOKS GOOD WITHOUT ANY SIGNS OF INFECTION. C/O MILD TENDERNESS WITH LIGHT PALPATION OF LEFT HIP AND BUTTOCK THAT PATIENT RELATES TO HER BRUISING FROM FALLING IN DEC. OTHER: PATIENT ONLY ABLE TO WALK ON TOES AND HEELS WITH UE SUPPORT AND DIFFICULT BUT NOT PAINFUL PER PATIEINT REPORT. TREATMENT: NEUROMUSCULAR REEDUCATION - RETRAINING OF MVMT AND POSTURE FOR SITTING, LYING AND STANDING ACTIVITIES. - Balance/Special Test Scores Oswestry Low Back Score: 9 - Goals Goal 1:: DECREASE C/O LBP Goal Time Frame: 4-6 Weeks Goal 2:: IMPROVE LIFTING, SITTING, STANDING, TRAVEL, WORK AND HOMEMAKING FUNCTION Goal Time Frame: 4-6 Weeks Goal 3:: INSTRUCT IN PROPHYLAXIS Goal Time Frame: 4-6 Weeks - Anticipated Interventions Patient/Client Instruction: Educate patient on: Condition, Plan of Care, Risk Factors For the Purpose of:: To improve self management Therapeutic Exercise to Include: Strength training, Body mechanics, Postural training, Flexibilty training, Neuromotor development, In an aquatic setting, Dynamic Lumbar Stabilization For the Purpose of:: To decrease pain, To improve muscle performance and motor function, To increase tolerance to activity/condition/position, To improve ability of physical actions for home/community/work/leisure Thank you for the opportunity to evaluate your patient. For Medicare and Medicare HMO plans, please review the plan of care and approve it. It will need to be FAXED BACK to us at [phone] for Medicare purposes. For Medicare only, by signing this I certify the plan of care. Please let me know if there are questions or concerns regarding this plan of care. Physician Signature: Date:
--- NOTE | 2022-12-10 13:53 | HP.PTDCSUM ---
It has been my pleasure to treat NERY GARCIA referred by ONEL BARNHART, with the diagnosis of LUMBAR PAIN for a total of 7 visit(s). Discharge Date: 12/10/22 Please see the following information for a summary of their discharge status. Subjective: PATIENT REPORTS HER HEP IS REALLY WORKING HER AND SHE FEELS LIKE SHE IS DOING A LOT BETTER. BACK TO WORK X 3 DAYS. WORK WAS ROUGH FIRST DAY BUT VERY TOLERABLE TODAY. [employer]NANTH IS UNDERING HER A SADDLE CHAIR TOO. I'M WALKING A LOT BETTER. I CAN GO A LOT FURTHER AND A LOT FASTER. Low back Pain Intensity (Out of 10): 0 % Improvement: 90 Objective/Function: PATIENT DEMONSTRATED AND COMMUNICATED A GOOD UNDERSTANDING OF ALL INSTRUCTIONS AFTER GIVEN TODAY. GOOD PROGRESS TOWARD ALL PT GOALS. INDEP WITH HEP. PATIENT AND THERAPIST AGREEABLE TO D/C TO INDEP HEP AND FOLLOW UP WITH SURGEON NEXT MONTH. Goal 1:: DECREASE C/O LBP Goal Progress: Goal Met Goal 2:: IMPROVE LIFTING, SITTING, STANDING, TRAVEL, WORK AND HOMEMAKING FUNCTION Goal Progress: Goal Met Goal 3:: INSTRUCT IN PROPHYLAXIS Goal Progress: Goal Met Plan: D/C If there are questions or concerns regarding this patient's physical therapy, please feel free to call me at [phone]. Thank you for the referral of this patient. Sincerely, Rebecca Valencia, PT, Cert MDT Balance/Gait/Functional tests - Balance/Special Test Scores Oswestry Low Back Score: 0
== END 2022-12-10 19:00 | disposition home or self-care (01) ==
LOC: PT 13:30
PROVIDERS: PCP Family Medicine
DX: M54.50 Low back pain, unspecified (principal)
CPT/HCPCS: 97110; 97112; 97162; 97530